=== PATIENT | female | born 1975 | race Two or more races ===

== ENCOUNTER 2016-09-07 11:06 | Emergency (ER) | payer MEDICAID ==
[2016-09-07 13:07] LABS: URINE BILIRUBIN NEGATIVE (NEGATIVE); URINE BLOOD 4+ (NEGATIVE); URINE GLUCOSE (UA) NEGATIVE (NEGATIVE); URINE LEUKOCYTE ESTERASE NEGATIVE (NEGATIVE); URINE NITRITE NEGATIVE (NEGATIVE); URINE PROTEIN NEGATIVE (NEGATIVE); URINE UROBILINOGEN NORMAL (0-1 mg/dl)
[2016-09-07 13:09] LABS: HCG,QUALITATIVE URINE POSITIVE; URINE APPEARANCE CLEAR; URINE COLOR YELLOW
[2016-09-07 13:19] LABS: URINE BACTERIA 0; URINE EPITHELIAL CELLS FEW /hpf; URINE WBC FEW /hpf
[2016-09-07 13:47] LABS: ABSOLUTE NEUTROPHIL COUNT 4.9 K/mm3 (1.8-7.7); BASO # 0.1 K/mm3 (0.0-0.2); BASO % 0.7 % (0.2-1.0); EOS # 0.3 (0.0-0.5); EOS % 3.6 % (0.9-2.9); HEMATOCRIT 39.1 % (37.0-47.0); HEMOGLOBIN 12.4 gm/l (12.0-16.0); IMM NEUT% 0.4 % (0-1); LYMPH # 1.8 (1.0-4.8); LYMPH % 23.4 % (15-45); MEAN CELL VOLUME 86.5 fl (81.0-99.0); MEAN CORPUSCULAR HEMOGLOBIN 27.4 pg (27.0-31.0); MEAN CORPUSCULAR HGB CONC 31.7 g/dl (33.0-37.0); MEAN PLATELET VOLUME 11.1 fl (7.4-10.4); MONO # 0.5 (0.0-0.8); MONO % 6.3 % (4-12); NEUT % 65.6 % (43-75); PLATELET COUNT 223 K/mm3 (130-400); RED CELL DISTRIBUTION WIDTH 14.4 % (11.5-14.5)
[2016-09-07 14:25] LABS: ALB/GLOB RATIO 1.5 (>1.0); ALBUMIN 4.4 gm/dL (3.5-5.7); CALCIUM 9.5 mg/dL (8.6-10.3)
--- NOTE | 2016-09-07 15:51 | US ---
EXAMINATION: Obstetrical ultrasound less than 14 weeks. CLINICAL INDICATION:Early . Bleeding. Clinical estimated gestational age: 8 weeks 5 days : 4 , para 3 Technique:Transabdominal and transvaginal sonograms performed. Findings: There is a single live intrauterine gestation. Mean gestational sac is slightly irregular, its diameter measures 1.04 centimeters. A yolk sac is not visualized. A pole is visualized. It is irregular. The crown-rump length measures: 1.11 centimeters. cardiac activity is not detectable. Jeanette-gestational hemorrhage: None Maternal adnexa: Right ovary 2.9 x 3.1 x 4.3 centimeters. There is Doppler flow Left ovary: 2.1 x 1.6 x 2.0 centimeters. There is a possible corpus luteum cyst measuring 1.5 x 1.4 x 0.9 cm. There is Doppler flow. Free fluid:Absent The uterus exhibits leiomyomas. There are numerous. The largest is anterior midline measures 2.4 x 2.4 x 1.7 cm. There is an anterior left leiomyoma measuring 1.6 x 1.8 x 1.5 cm. IMPRESSION: 1. Findings worrisome for intrauterine demise. There is discrepancy between the gestational sac and crown-rump length with no discernible cardiac activity. Continued clinical evaluation and follow-up as deemed necessary. 2. Left corpus luteum cyst. 3. Leiomyomatous changes the uterus. Findings were discussed with Sonia at 3:27 PM 09/07/2016
== END 2016-09-07 16:21 | disposition home or self-care (01) ==
LOC: ED 11:06
DX: O20.0 Threatened abortion (principal); Z3A.01 Less than 8 weeks gestation of pregnancy

== ENCOUNTER 2016-09-15 19:07 | Emergency (ER) | payer MEDICAID ==
[2016-09-15] MEDS ORDERED: ACETAMINOPHEN 325 MG TABLET ONE (20:41)
[2016-09-15] MEDS ORDERED: LACTATED RINGERS 1,000 ML ONE (20:41)
[2016-09-15 21:28] LABS: PH,URINE 6.5 (5.0-8.0); URINE BILIRUBIN NEGATIVE (NEGATIVE); URINE BLOOD 3+ (NEGATIVE); URINE GLUCOSE (UA) NEGATIVE (NEGATIVE); URINE LEUKOCYTE ESTERASE NEGATIVE (NEGATIVE); URINE NITRITE NEGATIVE (NEGATIVE); URINE PROTEIN NEGATIVE (NEGATIVE); URINE UROBILINOGEN NORMAL (0-1 mg/dl)
[2016-09-15 21:36] LABS: ABSOLUTE NEUTROPHIL COUNT 6.2 K/mm3 (1.8-7.7); BASO % 0.5 % (0.2-1.0); EOS # 0.3 (0.0-0.5); EOS % 3.6 % (0.9-2.9); HEMATOCRIT 29.5 % (37.0-47.0); HEMOGLOBIN 9.4 gm/l (12.0-16.0); IMM NEUT% 0.3 % (0-1); LYMPH # 1.5 (1.0-4.8); LYMPH % 17.7 % (15-45); MEAN CELL VOLUME 87.5 fl (81.0-99.0); MEAN CORPUSCULAR HEMOGLOBIN 27.9 pg (27.0-31.0); MEAN CORPUSCULAR HGB CONC 31.9 g/dl (33.0-37.0); MEAN PLATELET VOLUME 11.2 fl (7.4-10.4); MONO # 0.6 (0.0-0.8); MONO % 6.5 % (4-12); NEUT % 71.4 % (43-75); PLATELET COUNT 233 K/mm3 (130-400); RED CELL DISTRIBUTION WIDTH 14.6 % (11.5-14.5)
[2016-09-15 21:39] LABS: ALB/GLOB RATIO 1.4 (>1.0); ALBUMIN 3.8 gm/dL (3.5-5.7); CALCIUM 8.8 mg/dL (8.6-10.3)
[2016-09-15 21:50] LABS: URINE APPEARANCE CLEAR; URINE COLOR STRAW
[2016-09-15 21:53] LABS: URINE BACTERIA RARE; URINE EPITHELIAL CELLS 0-2 /hpf; URINE WBC 0-2 /hpf
--- NOTE | 2016-09-15 22:27 | US ---
Name: LANRE FU Exam: Transvaginal imaging of the pelvis Comparison: None Clinical history: Pain and bleeding. Positive test. in progress. Febrile. Findings: Endovaginal imaging of the pelvis was performed. Uterus is enlarged compatible with gravid status measuring 12.3 x 8.0 x 5.7 cm. Within the anterior uterine wall, there is 2.0 x 1.7 x 1.4 similar vascular hypoechoic structure. This is not within the uterine cavity and leiomyoma is favored. There is a separate 1.9 x 1.5 x 1.4 similar leiomyoma the left. Endometrium measures up to 16 mm in thickness and is 13 years. There is small amount of fluid within the uterine cavity. Some of the echogenic material within the endometrium contains internal blood flow. Right ovary measures 3.0 x 2.1 x 1.7 cm with a volume of 5.5 cc. Left ovary measures 2.5 x 1.6 x 1.9 cm with a volume of 3.9 cc. There is blood flow in both ovaries. Right ovary contains cysts with the dominant measuring 1.5 cm in size. Left left ovary contains 1.5 x 1.9 x 1.4 cm hypodensity with no internal blood flow and there are internal echoes. Hemorrhagic cyst is favored. There is trace free fluid. Impression: 1. No normal visible intrauterine gestation 2. Heterogeneous material within the uterine cavity. Some of this material enhances. Differential considerations include retained products of conception and endometritis 3. Two 2 cm and less leiomyomas 4. Trace free fluid 5. Findings most suspicious for 1.9 cm involuting left ovary and cyst. Follow-up serial ultrasound and/or beta-hCG is recommended until intrauterine gestation has been proven. Note: The above report was uploaded to [facility]'s electronic medical records system at 2223 hours.
[2016-09-15] MEDS ORDERED: IBUPROFEN 600 MG TABLET ONE (23:23)
== END 2016-09-15 23:30 | disposition home or self-care (01) ==
LOC: ED 19:07
DX: B34.9 Viral infection, unspecified (principal)
CPT/HCPCS: 83605; 83690; 85025; 80053; 81001; 87804; 76830; 99284; 96360; 96361; 99283; A9270 ×2; J7120